=== PATIENT | male | born 1950 | race Caucasian/White ===

== ENCOUNTER 2023-10-10 22:52 | Inpatient (IN) | payer MEDICARE, OTHER ==
[~2023-10-10] VITALS: Ht 172.7 cm; Wt 64.9 kg
[2023-10-10 23:50] LABS: BASOPHILS % (AUTO) 0.6 % (0.0-2.0); EOSINOPHILS # (AUTO) 0.1 K/uL (0.0-0.7); EOSINOPHILS % (AUTO) 1.5 % (0.0-6.0); HEMATOCRIT 22 % (39-51); LYMPHOCYTES # (AUTO) 1.8 K/uL (0.8-4.8); LYMPHOCYTES % (AUTO) 23.1 % (20.0-44.0); MEAN CORPUSCULAR HEMOGLOBIN 40 PG (26.0-33.0); MEAN CORPUSCULAR HGB CONC 32 g/dl (31.0-36.0); MEAN CORPUSCULAR VOLUME 126 fL (80-96); MONOCYTES # (AUTO) 0.5 K/uL (0.1-1.30); MONOCYTES % (AUTO) 6.3 % (2.0-12.0); NEUTROPHILS # (AUTO) 5.4 K/uL (1.8-8.9); NEUTROPHILS % (AUTO) 68.5 % (43.0-81.0); PLATELET COUNT (AUTO) 234 K/uL (150-450); RED CELL DISTRIBUTION WIDTH 19.5 % (11.5-15.0); WHITE BLOOD COUNT (AUTO) 7.8 K/uL (4.3-11.0)
[2023-10-11] VITALS (8 sets, daily range): BP systolic 88–118; BP diastolic 49–65; TEMP 97.9–98.8; O2SAT 95–97
[2023-10-11] MEDS ORDERED: CEFTRIAXONE 1GM BAG (ER ONLY) 50 ML IV ONE (00:01)
[2023-10-11 00:02] LABS: RED BLOOD CELL COUNT(AUTO) 1.74 MIL/uL (4.5-6.0)
[2023-10-11] MEDS: CEFTRIAXONE 1 G in IV D5W 50 ML IV ONE (00:09)
[2023-10-11 00:23] LABS: ALANINE AMINOTRANSFERASE 26 U/L (12-78); ALKALINE PHOSPHATASE 163 U/L (46-116); ASPARTATE AMINOTRANSFERASE 59 U/L (15-37); BILIRUBIN,TOTAL 0.5 mg/dL (0.2-1.0); CALCIUM, SERUM 6.8 mg/dL (8.5-10.1); CARBON DIOXIDE 20 mmol/L (21-32); CHLORIDE 102 mmol/L (98-107); CREATININE 0.7 mg/dL (0.6-1.3); GLUCOSE 80 mg/dL (74-106); NT-PRO BNP 1416 pg/mL (0-125); POTASSIUM 4.7 mmol/L (3.5-5.1); SODIUM SERUM 133 mmol/L (136-145); TOTAL PROTEIN, SERUM 5.5 g/dL (6.4-8.2); UREA NITROGEN, BLOOD 13 mg/dL (7-18)
[2023-10-11 00:26] LABS: ALBUMIN 1.3 g/dL (3.4-5.0)
[2023-10-11 00:27] LABS: LACTIC ACID 5.5 mmol/L (0.4-2.0)
[2023-10-11] MEDS: IV NS 0.9% 1,000 ML IV ONE (00:49)
[2023-10-11] MEDS ORDERED: Z GUARD REMEDY 4 OZ OINT TP PRN (02:30)
[2023-10-11] MEDS ORDERED: MAGNESIUM HYDROXIDE 30 ML UDC PO PRN (02:30)
[2023-10-11] MEDS ORDERED: ZOLPIDEM TARTRATE 5 MG TABLET PO PRN (02:30)
[2023-10-11] MEDS ORDERED: MAG HYDROX/AL HYDROX/SIMETH 30 ML UDC PO PRN (02:30)
[2023-10-11] MEDS ORDERED: ONDANSETRON HCL/PF 4 MG/2 ML VIAL IVP PRN (02:30)
[2023-10-11 02:58] LABS: BILIRUBIN,DIRECT 0.2 mg/dL (0.0-0.2)
[2023-10-11] MEDS ORDERED: MORPHINE SULFATE INJ 4 MG/ML DISP.SYRIN IV PRN (03:00)
[2023-10-11 03:05] LABS: LACTIC ACID REFLEX 2.9 mmol/L (0.4-1.9)
[2023-10-11] MEDS: VANCOMYCIN 1 GM /D5W 250 ML PB IV ONE (04:06)
[2023-10-11] MEDS: VANCOMYCIN 1 GM in IV D5W 250 ML IV ONE (04:22)
[2023-10-11] MEDS: APIXABAN 5 MG TABLET PO SCH (04:28)
[2023-10-11 07:18] LABS: CALCIUM, SERUM 6.6 mg/dL (8.5-10.1); CREATININE 0.7 mg/dL (0.6-1.3); POTASSIUM 4.2 mmol/L (3.5-5.1)
[2023-10-11 07:30] LABS: BASOPHILS % (AUTO) 0.6 % (0.0-2.0); EOSINOPHILS # (AUTO) 0.1 K/uL (0.0-0.7); EOSINOPHILS % (AUTO) 1.2 % (0.0-6.0); LYMPHOCYTES # (AUTO) 1.5 K/uL (0.8-4.8); LYMPHOCYTES % (AUTO) 22.1 % (20.0-44.0); MEAN CORPUSCULAR HEMOGLOBIN 41 PG (26.0-33.0); MEAN CORPUSCULAR HGB CONC 32 g/dl (31.0-36.0); MEAN CORPUSCULAR VOLUME 127 fL (80-96); MONOCYTES # (AUTO) 0.6 K/uL (0.1-1.30); MONOCYTES % (AUTO) 8.7 % (2.0-12.0); NEUTROPHILS # (AUTO) 4.6 K/uL (1.8-8.9); NEUTROPHILS % (AUTO) 67.4 % (43.0-81.0); PLATELET COUNT (AUTO) 196 K/uL (150-450); WHITE BLOOD COUNT (AUTO) 6.9 K/uL (4.3-11.0)
[2023-10-11 07:58] LABS: HEMATOCRIT 20 % (39-51); RED BLOOD CELL COUNT(AUTO) 1.56 MIL/uL (4.5-6.0)
[2023-10-11 07:59] LABS: HEMOGLOBIN 6.3 g/dL (13.5-17.5)
[2023-10-11] MEDS: PANTOPRAZOLE 40 MG VIAL IV SCH (08:33)
[2023-10-11] MEDS ORDERED: GABA300C PO (08:55)
[2023-10-11] MEDS ORDERED: GUAI600T31 PO (08:55)
[2023-10-11] MEDS ORDERED: LEVA15HF6 IH (08:55)
[2023-10-11] MEDS ORDERED: METO-357 PO (08:55)
[2023-10-11 11:28] LABS: ANISOCYTOSIS 1+; BASOPHILS % (MANUAL) 0 % (0.0-2.0); EOSINOPHILS % (MANUAL) 2 % (0-4); LYMPHOCYTES % (MANUAL) 18 % (16-48); MONOCYTES % (MANUAL) 7 % (0-11.0); NEUTROPHILS % (MANUAL) 73 (42-76); OVALOCYTES 1+; PLATELET ESTIMATE ADEQUATE
[2023-10-11] MEDS: VANCOMYCIN HCL 1.25 GM in IV D5W 250 ML IV SCH (15:15)
[2023-10-11 19:41] LABS: HEMOGLOBIN 8.4 g/dL (13.5-17.5)
[2023-10-11] MEDS: ACETAMINOPHEN 325 MG TABLET PO PRN (20:51)
[2023-10-11] MEDS: CEFTRIAXONE 1 G in IV D5W 50 ML IV SCH (21:13)
[2023-10-12 07:06] LABS: BASOPHILS % (AUTO) 0.6 % (0.0-2.0); EOSINOPHILS # (AUTO) 0.1 K/uL (0.0-0.7); EOSINOPHILS % (AUTO) 1.8 % (0.0-6.0); HEMATOCRIT 26 % (39-51); HEMOGLOBIN 8.5 g/dL (13.5-17.5); LYMPHOCYTES # (AUTO) 1.4 K/uL (0.8-4.8); LYMPHOCYTES % (AUTO) 19.7 % (20.0-44.0); MEAN CORPUSCULAR HEMOGLOBIN 37 PG (26.0-33.0); MEAN CORPUSCULAR HGB CONC 33 g/dl (31.0-36.0); MEAN CORPUSCULAR VOLUME 110 fL (80-96); MONOCYTES # (AUTO) 0.4 K/uL (0.1-1.30); MONOCYTES % (AUTO) 5.6 % (2.0-12.0); NEUTROPHILS # (AUTO) 5.1 K/uL (1.8-8.9); NEUTROPHILS % (AUTO) 72.3 % (43.0-81.0); PLATELET COUNT (AUTO) 203 K/uL (150-450); RED BLOOD CELL COUNT(AUTO) 2.33 MIL/uL (4.5-6.0); RED CELL DISTRIBUTION WIDTH 30.6 % (11.5-15.0)
[2023-10-12 07:30] VITALS: BP 119/62; TEMP 98.4; O2SAT 98
[2023-10-12 08:34] LABS: CALCIUM, SERUM 7.1 mg/dL (8.5-10.1); CARBON DIOXIDE 24 mmol/L (21-32); CHLORIDE 104 mmol/L (98-107); GLUCOSE 102 mg/dL (74-106); MAGNESIUM 1.9 mg/dL (1.8-2.4); PHOSPHORUS 3.1 mg/dL (2.5-4.9); SODIUM SERUM 133 mmol/L (136-145); UREA NITROGEN, BLOOD 15 mg/dL (7-18)
[2023-10-12] MEDS: PANTOPRAZOLE 40 MG TABLET.DR PO SCH (09:50)
[2023-10-12] MEDS: HYDROCODONE/APAP 5/325MG TABLET PO PRN (13:38)
[2023-10-12 16:00] VITALS: BP 97/51; TEMP 99.1; O2SAT 96
[2023-10-12 18:02] LABS: HEMOGLOBIN 7.3 g/dL (13.5-17.5)
[2023-10-12 20:00] VITALS: BP 100/59; TEMP 99.1; O2SAT 96
[2023-10-13] MEDS: VANCOMYCIN 750 MG in IV D5W 250 ML IV SCH (04:04)
[2023-10-13 07:24] LABS: CARBON DIOXIDE 25 mmol/L (21-32); CHLORIDE 117 mmol/L (98-107); GLUCOSE 92 mg/dL (74-106); POTASSIUM 3.7 mmol/L (3.5-5.1); SODIUM SERUM 145 mmol/L (136-145); UREA NITROGEN, BLOOD 15 mg/dL (7-18)
[2023-10-13 08:00] VITALS: BP 99/56; TEMP 98.2; O2SAT 98
[2023-10-13] MEDS: DAKINS HALF STRENGTH (0.25%) 480 ML BOTTLE TOP SCH (09:00)
[2023-10-13] MEDS: METOPROLOL SUCCINATE 50 MG TAB.SR.24H PO SCH (11:00)
[2023-10-13] MEDS: PROSOURCE / PROSTAT (PYXIS) 30 ML UDC PO SCH (13:00)
[2023-10-13] MEDS: GABAPENTIN 300 MG CAPSULE PO SCH (13:40)
[2023-10-13 16:00] VITALS: BP 106/54; TEMP 97.9; O2SAT 98
[2023-10-13 16:01] VITALS: BP 106/54; TEMP 97.9; O2SAT 98
[2023-10-13 20:00] VITALS: BP 103/55; TEMP 97.3; O2SAT 100
[2023-10-13 23:12] VITALS: BP 103/55; TEMP 97.3; O2SAT 100
[2023-10-14] VITALS (11 sets, daily range): BP systolic 98–132; BP diastolic 52–87; TEMP 97.5–98.6; O2SAT 97–100
[2023-10-14] MEDS: VANCOMYCIN 750 MG in IV D5W 250 ML IV SCH (03:18)
[2023-10-14 06:56] LABS: CALCIUM, SERUM 7.1 mg/dL (8.5-10.1); CREATININE 1.2 mg/dL (0.6-1.3); POTASSIUM 4.2 mmol/L (3.5-5.1)
[2023-10-14 07:14] LABS: BASOPHILS # (AUTO) 0.1 K/uL (0.0-0.2); EOSINOPHILS # (AUTO) 0.1 K/uL (0.0-0.7); EOSINOPHILS % (AUTO) 1.4 % (0.0-6.0); LYMPHOCYTES # (AUTO) 1.9 K/uL (0.8-4.8); LYMPHOCYTES % (AUTO) 32.8 % (20.0-44.0); MEAN CORPUSCULAR HEMOGLOBIN 37 PG (26.0-33.0); MEAN CORPUSCULAR HGB CONC 33 g/dl (31.0-36.0); MEAN CORPUSCULAR VOLUME 112 fL (80-96); MONOCYTES # (AUTO) 0.6 K/uL (0.1-1.30); NEUTROPHILS # (AUTO) 3.2 K/uL (1.8-8.9); NEUTROPHILS % (AUTO) 54.8 % (43.0-81.0); PLATELET COUNT (AUTO) 197 K/uL (150-450); RED CELL DISTRIBUTION WIDTH 29.5 % (11.5-15.0); WHITE BLOOD COUNT (AUTO) 5.9 K/uL (4.3-11.0)
[2023-10-14 07:26] LABS: RED BLOOD CELL COUNT(AUTO) 1.55 MIL/uL (4.5-6.0)
[2023-10-14 07:43] LABS: HEMATOCRIT 17 % (39-51); HEMOGLOBIN 5.7 g/dL (13.5-17.5)
[2023-10-14 09:57] LABS: ANISOCYTOSIS 1+; BASOPHILS % (MANUAL) 0 % (0.0-2.0); EOSINOPHILS % (MANUAL) 2 % (0-4); LYMPHOCYTES % (MANUAL) 25 % (16-48); MONOCYTES % (MANUAL) 7 % (0-11.0); NEUTROPHILS % (MANUAL) 66 (42-76); OVALOCYTES 1+; PLATELET ESTIMATE ADEQUATE
[2023-10-14] MEDS: PANTOPRAZOLE 40 MG VIAL IV SCH (22:15)
[2023-10-15 00:25] LABS: HEMOGLOBIN 8.1 g/dL (13.5-17.5)
[2023-10-15 00:56] LABS: CREATININE, URINE 82.4 MG/DL (30.0-125.0); URINE SODIUM, RANDOM < 5 mmol/l (40-220); URINE TOTAL PROTEIN 21.4 mg/dL (0-11.9)
[2023-10-15 01:01] LABS: APPEARANCE,URINE CLEAR (CLEAR); BILIRUBIN,URINE NEGATIVE (NEGATIVE); BLOOD, URINE 1+ Ery/uL (NEGATIVE); COLOR,URINE YELLOW (YELLOW); KETONES,URINE TRACE mg/dL (NEGATIVE); LEUKOCYTE ESTERASE ,URINE NEGATIVE (NEGATIVE); NITRITE, URINE NEGATIVE (NEGATIVE); PH,URINE 5.5 (5.0-8.0); PROTEIN,URINE NEGATIVE (NEGATIVE); UGLUCOSE NEGATIVE (NEGATIVE); UROBILINOGEN,URINE 0.2 EU/dL (0.2)
[2023-10-15 01:03] LABS: ADD URINE CULTURE NO; BACTERIA,URINE Rare /HPF (None Seen); EOSINOPHIL,URINE None Seen; SQUAMOUS EPITHELIAL CELL,UR Few /HPF (None Seen); WBC,URINE 0-2 /HPF (0-3)
[2023-10-15 03:04] VITALS: O2SAT 100
[2023-10-15 04:45] LABS: BASOPHILS # (AUTO) 0.1 K/uL (0.0-0.2); BASOPHILS % (AUTO) 1.1 % (0.0-2.0); EOSINOPHILS # (AUTO) 0.1 K/uL (0.0-0.7); EOSINOPHILS % (AUTO) 1.9 % (0.0-6.0); HEMATOCRIT 25 % (39-51); HEMOGLOBIN 8.6 g/dL (13.5-17.5); LYMPHOCYTES # (AUTO) 1.3 K/uL (0.8-4.8); LYMPHOCYTES % (AUTO) 19.1 % (20.0-44.0); MEAN CORPUSCULAR HEMOGLOBIN 36 PG (26.0-33.0); MEAN CORPUSCULAR HGB CONC 35 g/dl (31.0-36.0); MEAN CORPUSCULAR VOLUME 103 fL (80-96); MONOCYTES # (AUTO) 0.5 K/uL (0.1-1.30); MONOCYTES % (AUTO) 7.8 % (2.0-12.0); NEUTROPHILS # (AUTO) 4.6 K/uL (1.8-8.9); NEUTROPHILS % (AUTO) 70.1 % (43.0-81.0); PLATELET COUNT (AUTO) 183 K/uL (150-450); RED BLOOD CELL COUNT(AUTO) 2.42 MIL/uL (4.5-6.0); RED CELL DISTRIBUTION WIDTH 26.5 % (11.5-15.0); WHITE BLOOD COUNT (AUTO) 6.6 K/uL (4.3-11.0)
[2023-10-15 05:05] LABS: ALBUMIN 1.2 g/dL (3.4-5.0); CALCIUM, SERUM 7.4 mg/dL (8.5-10.1); CREATININE 1.1 mg/dL (0.6-1.3); PHOSPHORUS 3.3 mg/dL (2.5-4.9); POTASSIUM 3.5 mmol/L (3.5-5.1)
[2023-10-15 07:53] LABS: OCCULT BLOOD STOOL POSITIVE (NEGATIVE)
[2023-10-15 08:00] VITALS: BP 121/68; TEMP 98.2; O2SAT 100
[2023-10-15 16:00] VITALS: BP 108/59; TEMP 97.5; O2SAT 100
[2023-10-15 20:25] VITALS: BP 121/65; TEMP 97.5; O2SAT 100
[2023-10-16 04:27] LABS: BASOPHILS % (AUTO) 0.5 % (0.0-2.0); EOSINOPHILS # (AUTO) 0.2 K/uL (0.0-0.7); EOSINOPHILS % (AUTO) 5.8 % (0.0-6.0); HEMATOCRIT 24 % (39-51); HEMOGLOBIN 8.1 g/dL (13.5-17.5); LYMPHOCYTES # (AUTO) 0.9 K/uL (0.8-4.8); LYMPHOCYTES % (AUTO) 23.7 % (20.0-44.0); MEAN CORPUSCULAR HEMOGLOBIN 35 PG (26.0-33.0); MEAN CORPUSCULAR HGB CONC 33 g/dl (31.0-36.0); MEAN CORPUSCULAR VOLUME 103 fL (80-96); MONOCYTES # (AUTO) 0.2 K/uL (0.1-1.30); MONOCYTES % (AUTO) 5.3 % (2.0-12.0); NEUTROPHILS # (AUTO) 2.4 K/uL (1.8-8.9); NEUTROPHILS % (AUTO) 64.7 % (43.0-81.0); PLATELET COUNT (AUTO) 174 K/uL (150-450); RED BLOOD CELL COUNT(AUTO) 2.36 MIL/uL (4.5-6.0); RED CELL DISTRIBUTION WIDTH 27.2 % (11.5-15.0); WHITE BLOOD COUNT (AUTO) 3.8 K/uL (4.3-11.0)
[2023-10-16 05:20] LABS: CALCIUM, SERUM 7.5 mg/dL (8.5-10.1); CREATININE 1.1 mg/dL (0.6-1.3); POTASSIUM 3.5 mmol/L (3.5-5.1)
[2023-10-16 05:24] VITALS: O2SAT 100
[2023-10-16] MEDS: VANCOMYCIN 750 MG in IV D5W 250 ML IV SCH (05:34)
[2023-10-16 06:10] LABS: PTH, INTACT 17 pg/mL (15-65)
[2023-10-16 07:30] VITALS: BP 116/63; TEMP 97.3; O2SAT 97
[2023-10-16 08:28] VITALS: O2SAT 99
[2023-10-16 12:11] LABS: *SPE A/G RATIO 0.5 (0.7-1.7); *SPE ALBUMIN 1.6 g/dL (2.9-4.4); *SPE ALPHA-1-GLOBULIN 0.3 g/dL (0.0-0.4); *SPE ALPHA-2-GLOBULIN 0.4 g/dL (0.4-1.0); *SPE BETA GLOBULIN 0.8 g/dL (0.7-1.3); *SPE GLOBULIN, TOTAL 3.2 g/dL (2.2-3.9); *SPE M-SPIKE 0.9 g/dL (Not Observed); *SPE PROTEIN TOTAL 4.8 g/dL (6.0-8.5); *SPEGAMMA GLOBULIN 1.7 g/dL (0.4-1.8)
[2023-10-16 16:00] VITALS: BP 114/58; TEMP 97.3; O2SAT 98
[2023-10-16] MEDS: MEROPENEM 1 G in IV NS 0.9% 100 ML IV SCH (16:24)
[2023-10-16 20:00] VITALS: BP 105/52; TEMP 97.9; O2SAT 100
[2023-10-16] MEDS: PANTOPRAZOLE 40 MG TABLET.DR PO SCH (20:55)
[2023-10-17 02:31] VITALS: O2SAT 99
[2023-10-17 07:25] LABS: HEMOGLOBIN 12.2 g/dL (13.5-17.5)
[2023-10-17 07:47] LABS: BASOPHILS % (AUTO) 1.1 % (0.0-2.0); EOSINOPHILS # (AUTO) 0.5 K/uL (0.0-0.7); EOSINOPHILS % (AUTO) 11.3 % (0.0-6.0); HEMATOCRIT 36 % (39-51); LYMPHOCYTES # (AUTO) 1.9 K/uL (0.8-4.8); LYMPHOCYTES % (AUTO) 43.8 % (20.0-44.0); MEAN CORPUSCULAR HEMOGLOBIN 30 PG (26.0-33.0); MEAN CORPUSCULAR HGB CONC 34 g/dl (31.0-36.0); MEAN CORPUSCULAR VOLUME 88 fL (80-96); MONOCYTES # (AUTO) 0.4 K/uL (0.1-1.30); MONOCYTES % (AUTO) 8.6 % (2.0-12.0); NEUTROPHILS # (AUTO) 1.6 K/uL (1.8-8.9); NEUTROPHILS % (AUTO) 35.2 % (43.0-81.0); PLATELET COUNT (AUTO) 228 K/uL (150-450); RED BLOOD CELL COUNT(AUTO) 4.08 MIL/uL (4.5-6.0); RED CELL DISTRIBUTION WIDTH 13.6 % (11.5-15.0); WHITE BLOOD COUNT (AUTO) 4.4 K/uL (4.3-11.0)
[2023-10-17 08:00] VITALS: BP 103/59; TEMP 98; O2SAT 98
[2023-10-17 08:09] VITALS: O2SAT 98
[2023-10-17] MEDS: GUAIFENESIN/D-METHORPHAN HB 5 ML UDC PO PRN (16:26)
[2023-10-17 20:00] VITALS: BP 118/69; TEMP 97.5; O2SAT 98
[2023-10-18 04:02] VITALS: O2SAT 98
[2023-10-18 08:00] VITALS: BP 127/69; TEMP 97.7; O2SAT 97
[2023-10-18 09:24] VITALS: O2SAT 98
[2023-10-18 10:15] LABS: CREATININE 0.9 mg/dL (0.6-1.3); POTASSIUM 2.9 mmol/L (3.5-5.1)
[2023-10-18] MEDS: POTASSIUM CHLORIDE 20 MEQ TAB.PRT.SR PO SCH (11:29)
[2023-10-18 16:00] VITALS: BP 116/65; TEMP 97.9; O2SAT 93
[2023-10-18 21:51] VITALS: BP 116/59; TEMP 97.7; O2SAT 96
[2023-10-19 04:26] VITALS: O2SAT 95
[2023-10-19 06:31] LABS: BASOPHILS % (AUTO) 0.6 % (0.0-2.0); EOSINOPHILS # (AUTO) 0.1 K/uL (0.0-0.7); EOSINOPHILS % (AUTO) 1.7 % (0.0-6.0); HEMATOCRIT 22 % (39-51); HEMOGLOBIN 7.3 g/dL (13.5-17.5); LYMPHOCYTES # (AUTO) 1.1 K/uL (0.8-4.8); LYMPHOCYTES % (AUTO) 18.5 % (20.0-44.0); MEAN CORPUSCULAR HEMOGLOBIN 35 PG (26.0-33.0); MEAN CORPUSCULAR HGB CONC 33 g/dl (31.0-36.0); MEAN CORPUSCULAR VOLUME 107 fL (80-96); MONOCYTES # (AUTO) 0.5 K/uL (0.1-1.30); NEUTROPHILS # (AUTO) 4.4 K/uL (1.8-8.9); NEUTROPHILS % (AUTO) 71.2 % (43.0-81.0); PLATELET COUNT (AUTO) 176 K/uL (150-450); RED BLOOD CELL COUNT(AUTO) 2.07 MIL/uL (4.5-6.0); RED CELL DISTRIBUTION WIDTH 27.4 % (11.5-15.0); WHITE BLOOD COUNT (AUTO) 6.1 K/uL (4.3-11.0)
[2023-10-19 07:00] VITALS: BP 143/73; TEMP 97.7; O2SAT 100
[2023-10-19 07:14] LABS: CALCIUM, SERUM 7.3 mg/dL (8.5-10.1); CARBON DIOXIDE 23 mmol/L (21-32); CHLORIDE 111 mmol/L (98-107); CREATININE 0.9 mg/dL (0.6-1.3); GLUCOSE 96 mg/dL (74-106); SODIUM SERUM 139 mmol/L (136-145); UREA NITROGEN, BLOOD 26 mg/dL (7-18)
[2023-10-19 08:16] VITALS: O2SAT 98
[2023-10-19 09:32] VITALS: BP 123/60
[2023-10-19] MEDS: MEROPENEM 1 G in IV NS 0.9% 100 ML IV SCH (12:22)
== END 2023-10-19 15:30 | DRG 570 ==
LOC: ER 22:57 → MED 10-11 01:54
PROVIDERS: ATTEND Nurse Practitioner Acute Care
PROC: 30233N1 Transfusion of Nonautologous Red Blood Cells into Peripheral Vein, Percutaneous Approach (ICD-10-PCS; 2023-10-11)
PROC: 0KBV0ZZ Excision of Right Foot Muscle, Open Approach (ICD-10-PCS; principal; 2023-10-12)
PROC: 0JBN0ZZ Excision of Right Lower Leg Subcutaneous Tissue and Fascia, Open Approach (ICD-10-PCS; 2023-10-12)
PROC: 0JBR0ZZ Excision of Left Foot Subcutaneous Tissue and Fascia, Open Approach (ICD-10-PCS; 2023-10-12)
PROC: 0JBP0ZZ Excision of Left Lower Leg Subcutaneous Tissue and Fascia, Open Approach (ICD-10-PCS; 2023-10-12)
DX: L03.116 Cellulitis of left lower limb (principal); L89.614 Pressure ulcer of right heel, stage 4; L89.624 Pressure ulcer of left heel, stage 4; L89.893 Pressure ulcer of other site, stage 3; E87.1 Hypo-osmolality and hyponatremia; N17.9 Acute kidney failure, unspecified; E44.0 Moderate protein-calorie malnutrition; K92.2 Gastrointestinal hemorrhage, unspecified; G62.9 Polyneuropathy, unspecified; G89.29 Other chronic pain; D53.9 Nutritional anemia, unspecified; I10 Essential (primary) hypertension; D63.8 Anemia in other chronic diseases classified elsewhere; E88.09 Other disorders of plasma-protein metabolism, not elsewhere classified; L03.115 Cellulitis of right lower limb; Z74.01 Bed confinement status; Z86.718 Personal history of other venous thrombosis and embolism; E83.9 Disorder of mineral metabolism, unspecified; Z68.21 Body mass index [BMI] 21.0-21.9, adult; B96.89 Other specified bacterial agents as the cause of diseases classified elsewhere; L89.156 Pressure-induced deep tissue damage of sacral region; R19.5 Other fecal abnormalities
CPT/HCPCS: 36415; 71045-TC; 73590-TC; 73630-TC; 80048-TC; 80053-TC; 80202-TC; 81001; 82248-TC; 82272-TC; 82550-TC; 82570-TC; 83540-TC; 83605-TC; 83735-TC; 83880; 83970; 84100-TC; 84155; 84165; 84300-TC; 84484-TC; 85025-TC; 85027-TC; 86850-TC; 87040-TC; 93971-TC; 94760-TC; 94799-TC; 97110-TC; 97116-TC; 97530-TC; A4223; A4349; A6253; A6403; C9113; G0378; J0696; J2185; J3370; J3371; J7030; J7040; J7050; J7060; P9016

== ENCOUNTER 2024-08-29 22:24 | Inpatient (IN) | payer MEDICARE, OTHER ==
[~2024-08-29] VITALS: Ht 172.7 cm; Wt 60.8 kg
[~2024-08-29 22:24] MED LIST: GABA300C PO; GUAI600T31 PO; LEVA15HF6 IH; METO-357 PO
[2024-08-29] MEDS: ALBUTEROL FS 2.5 MG/3 ML VIAL.NEB NEB ONE (22:59)
[2024-08-29] MEDS: IPRATROPIUM NEB FS 0.5 MG/2.5 ML AMPUL.NEB NEB ONE (22:59)
[2024-08-29 23:01] VITALS: O2SAT 97
[2024-08-29] MEDS: methylPREDNISolone SOD SUCC 125 MG/2ML VIAL IV ONE (23:02)
[2024-08-29] MEDS: AZITHROMYCIN 250 MG TABLET PO ONE (23:02)
[2024-08-29 23:17] VITALS: O2SAT 96
[2024-08-29 23:17] LABS: BASOPHILS # (AUTO) 0.1 K/uL (0.0-0.2); BASOPHILS % (AUTO) 1.2 % (0.0-2.0); EOSINOPHILS # (AUTO) 0.4 K/uL (0.0-0.7); HEMATOCRIT 28 % (39-51); HEMOGLOBIN 9.1 g/dL (13.5-17.5); LYMPHOCYTES # (AUTO) 2.1 K/uL (0.8-4.8); LYMPHOCYTES % (AUTO) 21.7 % (20.0-44.0); MEAN CORPUSCULAR HEMOGLOBIN 36 PG (26.0-33.0); MEAN CORPUSCULAR HGB CONC 33 g/dl (31.0-36.0); MEAN CORPUSCULAR VOLUME 109 fL (80-96); MONOCYTES # (AUTO) 0.7 K/uL (0.1-1.30); MONOCYTES % (AUTO) 7.4 % (2.0-12.0); NEUTROPHILS # (AUTO) 6.5 K/uL (1.8-8.9); NEUTROPHILS % (AUTO) 65.7 % (43.0-81.0); PLATELET COUNT (AUTO) 427 K/uL (150-450); RED BLOOD CELL COUNT(AUTO) 2.53 MIL/uL (4.5-6.0); RED CELL DISTRIBUTION WIDTH 14.7 % (11.5-15.0); WHITE BLOOD COUNT (AUTO) 9.9 K/uL (4.3-11.0)
[2024-08-29 23:25] LABS: CARBON DIOXIDE 30 mmol/L (21-32); CHLORIDE 111 mmol/L (98-107); GLUCOSE 119 mg/dL (74-106); POTASSIUM 3.9 mmol/L (3.5-5.1); SODIUM SERUM 144 mmol/L (136-145); UREA NITROGEN, BLOOD 11 mg/dL (7-18)
[2024-08-29 23:30] VITALS: O2SAT 96
[2024-08-29] MEDS ORDERED: IOHEXOL-350 100 ML VIAL IV ONE (23:32)
[2024-08-29 23:33] LABS: LACTIC ACID 1.6 mmol/L (0.4-2.0)
[2024-08-29 23:40] LABS: ALANINE AMINOTRANSFERASE 9 U/L (12-78); ALBUMIN 1.6 g/dL (3.4-5.0); ALKALINE PHOSPHATASE 95 U/L (46-116); ASPARTATE AMINOTRANSFERASE 25 U/L (15-37); BILIRUBIN,DIRECT 0.1 mg/dL (0.0-0.2); BILIRUBIN,TOTAL 0.3 mg/dL (0.2-1.0)
[2024-08-30] MEDS ORDERED: FUROSEMIDE 40 MG/4 ML VIAL ONE (00:32)
[2024-08-30] MEDS: FUROSEMIDE 40 MG/4 ML VIAL IV ONE (00:35)
[2024-08-30] MEDS ORDERED: ACETAMINOPHEN 325 MG TABLET PO PRN (01:30)
[2024-08-30] MEDS ORDERED: ONDANSETRON HCL/PF 4 MG/2 ML VIAL IVP PRN (01:30)
[2024-08-30] MEDS ORDERED: MAGNESIUM HYDROXIDE 30 ML UDC PO PRN (01:30)
[2024-08-30] MEDS ORDERED: MAG HYDROX/AL HYDROX/SIMETH 30 ML UDC PO PRN (01:30)
[2024-08-30] MEDS ORDERED: PIPERACI/TAZO 3.375GM/D5W 50ML PB IV ONE (02:35)
[2024-08-30] MEDS: PIPERACILLIN /TAZOBACTAM 3.375 G in IV D5W 50 ML IV ONE (02:39)
[2024-08-30 04:00] VITALS: BP 141/91; TEMP 98.2; O2SAT 100
[2024-08-30] MEDS: methylPREDNISolone SOD SUCC 40 MG/ML VIAL IV SCH (04:16)
[2024-08-30] MEDS ORDERED: VANCOMYCIN 1 GM /D5W 250 ML PB IV ONE (04:17)
[2024-08-30] MEDS: VANCOMYCIN 1 GM in IV D5W 250 ML IV ONE (04:18)
[2024-08-30 07:34] LABS: CALCIUM, SERUM 7.9 mg/dL (8.5-10.1); CREATININE 0.9 mg/dL (0.6-1.3); MAGNESIUM 1.7 mg/dL (1.8-2.4); PHOSPHORUS 4.1 mg/dL (2.5-4.9); POTASSIUM 3.6 mmol/L (3.5-5.1)
[2024-08-30 07:36] LABS: BASOPHILS % (AUTO) 0.3 % (0.0-2.0); HEMATOCRIT 29 % (39-51); HEMOGLOBIN 9.5 g/dL (13.5-17.5); LYMPHOCYTES # (AUTO) 0.4 K/uL (0.8-4.8); LYMPHOCYTES % (AUTO) 2.8 % (20.0-44.0); MEAN CORPUSCULAR HEMOGLOBIN 36 PG (26.0-33.0); MEAN CORPUSCULAR HGB CONC 33 g/dl (31.0-36.0); MEAN CORPUSCULAR VOLUME 109 fL (80-96); MONOCYTES # (AUTO) 0.1 K/uL (0.1-1.30); MONOCYTES % (AUTO) 0.8 % (2.0-12.0); NEUTROPHILS # (AUTO) 12.6 K/uL (1.8-8.9); NEUTROPHILS % (AUTO) 96.1 % (43.0-81.0); PLATELET COUNT (AUTO) 371 K/uL (150-450); RED BLOOD CELL COUNT(AUTO) 2.65 MIL/uL (4.5-6.0); RED CELL DISTRIBUTION WIDTH 14.4 % (11.5-15.0); WHITE BLOOD COUNT (AUTO) 13.1 K/uL (4.3-11.0)
[2024-08-30 08:00] VITALS: BP 138/83; TEMP 97.5; O2SAT 96
[2024-08-30] MEDS: PANTOPRAZOLE 40 MG VIAL IV SCH (08:07)
[2024-08-30] MEDS: FUROSEMIDE 40 MG/4 ML VIAL IV SCH (08:07)
[2024-08-30] MEDS: POTASSIUM CHLORIDE 20 MEQ TAB.PRT.SR PO SCH (08:07)
[2024-08-30 08:22] LABS: ANISOCYTOSIS 2+; PLATELET ESTIMATE ADEQUATE
[2024-08-30 08:23] LABS: STOMATOCYTES 1+; TARGET CELLS 1+
[2024-08-30] MEDS ORDERED: FUROSEMIDE 40 MG/4 ML VIAL IV SCH (09:00)
[2024-08-30] MEDS: ENOXAPARIN SODIUM 60 MG/0.6 ML DISP.SYRIN SQ SCH (09:00)
[2024-08-30] MEDS ORDERED: ENOXAPARIN SODIUM 40 MG/0.4 ML DISP.SYRIN SQ SCH (09:00)
[2024-08-30] MEDS: ZOSYN IVPB 3.375 G in IV D5W 50ml IV SCH (09:30)
[2024-08-30] MEDS ORDERED: GUAI100S69 PO (09:40)
[2024-08-30] MEDS ORDERED: DOCU100T2 PO (09:40)
[2024-08-30] MEDS ORDERED: FERR-68 PO (09:40)
[2024-08-30] MEDS ORDERED: PANT40TA2 PO (09:40)
[2024-08-30] MEDS ORDERED: AMIN30LI66 PO (09:40)
[2024-08-30] MEDS ORDERED: IPRA3AMP22 IH (09:40)
[2024-08-30] MEDS ORDERED: NA P133E RC (09:40)
[2024-08-30] MEDS ORDERED: APIX5TAB PO (09:40)
[2024-08-30] MEDS ORDERED: MAGN400O6 PO (09:40)
[2024-08-30] MEDS ORDERED: LACT1CAP61 PO (09:40)
[2024-08-30] MEDS ORDERED: HYDR-4303 PO (09:40)
[2024-08-30] MEDS ORDERED: BISA10SU11 RC (09:40)
[2024-08-30] MEDS ORDERED: CHOL100062 PO (09:40)
[2024-08-30] MEDS ORDERED: ACET-868 PO ×2 (09:40)
[2024-08-30] MEDS ORDERED: CRAN425C6 PO (09:40)
[2024-08-30] MEDS ORDERED: METO50TA7 PO (09:40)
[2024-08-30] MEDS: MAGNESIUM OXIDE 400 MG TABLET PO ONE (10:20)
[2024-08-30 10:47] LABS: IRON, SERUM 14 ug/dl (50-175); TOTAL IRON BINDING CAPACITY 129 ug/dl (250-450)
[2024-08-30 11:04] LABS: FERRITIN 364 ng/mL (8-388)
[2024-08-30 12:00] VITALS: BP 136/73; TEMP 97.8; O2SAT 99
[2024-08-30] MEDS ORDERED: PIPERACILLIN /TAZOBACTAM 3.375 G in IV D5W 50 ML IV SCH (13:00)
[2024-08-30] MEDS ORDERED: BISACODYL SUPP (10 MG) 10 MG/SUPP.RECT SUPP.RECT RC PRN (13:30)
[2024-08-30 16:00] VITALS: BP 143/66; TEMP 98; O2SAT 99
[2024-08-30] MEDS: VANCOMYCIN 750 MG in IV D5W 250 ML IV SCH (16:21)
[2024-08-30] MEDS: LACTOBACILLUS RHAMNOSUS GG 1 EACH CAP.SPRINK PO SCH (16:30)
[2024-08-30] MEDS: PANTOPRAZOLE 40 MG TABLET.DR PO SCH (16:30)
[2024-08-30] MEDS: FERROUS SULFATE (325 MG) 325 MG/TAB TABLET PO SCH (16:30)
[2024-08-30] MEDS: GABAPENTIN 300 MG CAPSULE PO SCH (16:31)
[2024-08-30 20:00] VITALS: BP 121/74; TEMP 98.1; O2SAT 99
[2024-08-31] VITALS: BP 120/70; TEMP 99; O2SAT 98
[2024-08-31 04:00] VITALS: BP 126/63; TEMP 98.8; O2SAT 98
[2024-08-31 06:44] LABS: BASOPHILS % (AUTO) 0.1 % (0.0-2.0); HEMATOCRIT 24 % (39-51); HEMOGLOBIN 8.3 g/dL (13.5-17.5); LYMPHOCYTES # (AUTO) 0.8 K/uL (0.8-4.8); LYMPHOCYTES % (AUTO) 8.9 % (20.0-44.0); MEAN CORPUSCULAR HEMOGLOBIN 37 PG (26.0-33.0); MEAN CORPUSCULAR HGB CONC 35 g/dl (31.0-36.0); MEAN CORPUSCULAR VOLUME 107 fL (80-96); MONOCYTES # (AUTO) 0.2 K/uL (0.1-1.30); MONOCYTES % (AUTO) 2.5 % (2.0-12.0); NEUTROPHILS # (AUTO) 8.1 K/uL (1.8-8.9); NEUTROPHILS % (AUTO) 88.5 % (43.0-81.0); PLATELET COUNT (AUTO) 316 K/uL (150-450); RED BLOOD CELL COUNT(AUTO) 2.24 MIL/uL (4.5-6.0); RED CELL DISTRIBUTION WIDTH 14.2 % (11.5-15.0); WHITE BLOOD COUNT (AUTO) 9.2 K/uL (4.3-11.0)
[2024-08-31 06:55] LABS: INR 1.16 (0.91-1.10); PROTHROMBIN TIME 12.2 SECS (9.2-11.1)
[2024-08-31 07:22] LABS: ALBUMIN 1.5 g/dL (3.4-5.0); BILIRUBIN,TOTAL 0.3 mg/dL (0.2-1.0); CALCIUM, SERUM 7.6 mg/dL (8.5-10.1); MAGNESIUM 1.6 mg/dL (1.8-2.4); PHOSPHORUS 3.2 mg/dL (2.5-4.9); POTASSIUM 3.7 mmol/L (3.5-5.1); TOTAL PROTEIN, SERUM 5.4 g/dL (6.4-8.2)
[2024-08-31 08:00] VITALS: BP 143/82; TEMP 98.1; O2SAT 100
[2024-08-31] MEDS: CHOLECALCIFEROL 1,000 UNIT TABLET (VIT D3) PO SCH (08:38)
[2024-08-31] MEDS: METOPROLOL SUCCINATE 50 MG TAB.SR.24H PO SCH (08:38)
[2024-08-31] MEDS: DOCUSATE SODIUM 100 MG CAPSULE PO SCH (08:38)
[2024-08-31] MEDS: Magnesium 1GM/D5W 100ML PREMIX 100 ML IV SCH (11:34)
[2024-08-31 12:00] VITALS: BP 146/82; TEMP 98.1; O2SAT 100
[2024-08-31 16:00] VITALS: BP 145/82; TEMP 98; O2SAT 100
[2024-08-31 20:00] VITALS: BP 140/80; TEMP 97.4; O2SAT 100
[2024-09-01] VITALS (7 sets, daily range): BP systolic 118–156; BP diastolic 63–92; TEMP 97.5–98; O2SAT 94–100
[2024-09-01 07:02] LABS: HEMATOCRIT 23 % (39-51); HEMOGLOBIN 7.8 g/dL (13.5-17.5); LYMPHOCYTES # (AUTO) 0.6 K/uL (0.8-4.8); LYMPHOCYTES % (AUTO) 6.8 % (20.0-44.0); MEAN CORPUSCULAR HEMOGLOBIN 37 PG (26.0-33.0); MEAN CORPUSCULAR HGB CONC 34 g/dl (31.0-36.0); MEAN CORPUSCULAR VOLUME 107 fL (80-96); MONOCYTES # (AUTO) 0.4 K/uL (0.1-1.30); MONOCYTES % (AUTO) 3.8 % (2.0-12.0); NEUTROPHILS # (AUTO) 8.4 K/uL (1.8-8.9); NEUTROPHILS % (AUTO) 89.4 % (43.0-81.0); PLATELET COUNT (AUTO) 303 K/uL (150-450); RED BLOOD CELL COUNT(AUTO) 2.12 MIL/uL (4.5-6.0); RED CELL DISTRIBUTION WIDTH 14.1 % (11.5-15.0); WHITE BLOOD COUNT (AUTO) 9.4 K/uL (4.3-11.0)
[2024-09-01 07:05] LABS: CALCIUM, SERUM 7.5 mg/dL (8.5-10.1); CREATININE 0.7 mg/dL (0.6-1.3); MAGNESIUM 2.1 mg/dL (1.8-2.4); PHOSPHORUS 1.9 mg/dL (2.5-4.9); POTASSIUM 3.1 mmol/L (3.5-5.1)
[2024-09-01] MEDS: POTASSIUM CHLORIDE 20 MEQ TAB.PRT.SR PO SCH (09:52)
[2024-09-01] MEDS: methylPREDNISolone SOD SUCC 40 MG/ML VIAL IV SCH (16:00)
[2024-09-01] MEDS: K PHOS NEUTRAL 250 MG TABLET PO ONE (16:12)
[2024-09-02] VITALS (10 sets, daily range): BP systolic 117–147; BP diastolic 55–80; TEMP 97.7–98.4; O2SAT 96–100
[2024-09-02] MEDS: IPRATROPIUM NEB FS 0.5 MG/2.5 ML AMPUL.NEB NEB PRN (06:21)
[2024-09-02] MEDS: LEVALBUTEROL HCL NEB 1.25 MG/0.5 ML VIAL.NEB NEB PRN (06:21)
[2024-09-02 08:07] LABS: HEMATOCRIT 27 % (39-51); LYMPHOCYTES # (AUTO) 1.1 K/uL (0.8-4.8); LYMPHOCYTES % (AUTO) 11.4 % (20.0-44.0); MEAN CORPUSCULAR HEMOGLOBIN 36 PG (26.0-33.0); MEAN CORPUSCULAR HGB CONC 34 g/dl (31.0-36.0); MEAN CORPUSCULAR VOLUME 107 fL (80-96); MONOCYTES # (AUTO) 0.7 K/uL (0.1-1.30); MONOCYTES % (AUTO) 7.4 % (2.0-12.0); NEUTROPHILS # (AUTO) 7.6 K/uL (1.8-8.9); NEUTROPHILS % (AUTO) 81.2 % (43.0-81.0); PLATELET COUNT (AUTO) 349 K/uL (150-450); RED BLOOD CELL COUNT(AUTO) 2.51 MIL/uL (4.5-6.0); RED CELL DISTRIBUTION WIDTH 14.1 % (11.5-15.0); WHITE BLOOD COUNT (AUTO) 9.3 K/uL (4.3-11.0)
[2024-09-02 08:27] LABS: CALCIUM, SERUM 7.9 mg/dL (8.5-10.1); CREATININE 0.7 mg/dL (0.6-1.3); PHOSPHORUS 2.1 mg/dL (2.5-4.9); POTASSIUM 3.7 mmol/L (3.5-5.1)
[2024-09-02] MEDS: K PHOS NEUTRAL 250 MG TABLET PO ONE (16:58)
[2024-09-02] MEDS: APIXABAN 5 MG TABLET PO SCH (17:00)
[2024-09-03] VITALS (10 sets, daily range): BP systolic 117–151; BP diastolic 51–90; TEMP 97.7–99; O2SAT 94–100
[2024-09-03 06:49] LABS: CALCIUM, SERUM 7.5 mg/dL (8.5-10.1); CREATININE 0.7 mg/dL (0.6-1.3); PHOSPHORUS 2.5 mg/dL (2.5-4.9)
[2024-09-03] MEDS: POTASSIUM CHLORIDE 20 MEQ TAB.PRT.SR PO SCH (11:28)
[2024-09-03] MEDS: VANCOMYCIN 500 MG in IV D5W 100ml IV SCH (22:32)
[2024-09-04] VITALS (7 sets, daily range): BP systolic 126–172; BP diastolic 65–92; TEMP 97.2–98.2; O2SAT 97–100
[2024-09-04 07:12] LABS: CALCIUM, SERUM 7.8 mg/dL (8.5-10.1); CARBON DIOXIDE 34 mmol/L (21-32); CHLORIDE 109 mmol/L (98-107); CREATININE 0.6 mg/dL (0.6-1.3); GLUCOSE 89 mg/dL (74-106); POTASSIUM 3.8 mmol/L (3.5-5.1); SODIUM SERUM 143 mmol/L (136-145); UREA NITROGEN, BLOOD 11 mg/dL (7-18)
[2024-09-04] MEDS: ZOSYN IVPB 3.375 G in IV D5W 50ml IV SCH (13:16)
[2024-09-05] VITALS (13 sets, daily range): BP systolic 146–178; BP diastolic 79–90; TEMP 98.1–98.4; O2SAT 93–100
[2024-09-05 06:58] LABS: CALCIUM, SERUM 7.7 mg/dL (8.5-10.1); CREATININE 0.7 mg/dL (0.6-1.3); POTASSIUM 3.9 mmol/L (3.5-5.1)
[2024-09-05] MEDS: IPRATROPIUM NEB FS 0.5 MG/2.5 ML AMPUL.NEB NEB SCH (10:00)
[2024-09-05] MEDS: ACETYLCYSTEINE 10% SOLN 400 MG/4 ML VIAL NEB SCH (10:00)
[2024-09-05] MEDS ORDERED: BUMETANIDE INJ 4 MG in IV D5W 24 ML IV ONE (10:00)
[2024-09-05] MEDS: LEVALBUTEROL HCL NEB 1.25 MG/0.5 ML VIAL.NEB NEB SCH (10:00)
[2024-09-05] MEDS: BUMETANIDE INJ 4 MG in IV NS 0.9% 24 ML IV ONE (10:50)
[2024-09-05] MEDS: VALSARTAN 80 MG TABLET PO SCH (11:00)
[2024-09-05 13:11] LABS: *SPE A/G RATIO 0.7 (0.7-1.7); *SPE ALBUMIN 2.1 g/dL (2.9-4.4); *SPE ALPHA-1-GLOBULIN 0.3 g/dL (0.0-0.4); *SPE ALPHA-2-GLOBULIN 0.5 g/dL (0.4-1.0); *SPE BETA GLOBULIN 0.7 g/dL (0.7-1.3); *SPE GLOBULIN, TOTAL 3.2 g/dL (2.2-3.9); *SPE PROTEIN TOTAL 5.3 g/dL (6.0-8.5); *SPEGAMMA GLOBULIN 1.8 g/dL (0.4-1.8)
[2024-09-05] MEDS: ALBUMIN 25% 25 GM in PREMIX 1 EA IV SCH (13:49)
[2024-09-06] VITALS (11 sets, daily range): BP systolic 140–155; BP diastolic 78–89; TEMP 98–98.8; O2SAT 92–100
[2024-09-06 10:21] LABS: ABG BASE EXCESS 7.1 mmol/L (-2.0-3.0); ABG OXYGEN SATURATION 88.9 % (94.0-98.0); ABG PCO2 39.3 mmHg (35.0-48.0); ABG PO2 58.5 mmHg (83.0-108.0); ABG TOTAL HEMOGLOBIN 8.5 G/dL (13.5-17.5); COHb 0.4 % (0.5-1.5); MetHb 0.3 % (0.0-1.5); O2Hb 88.3 % (94.0-97.0); SITE, ABG LEFT RADIAL
[2024-09-06] MEDS ORDERED: BUMETANIDE INJ 4 MG in IV D5W 24 ML IV ONE (11:00)
[2024-09-06] MEDS: ALBUMIN 25% 25 GM in PREMIX 1 EA IV SCH (11:58)
[2024-09-06 12:03] LABS: CALCIUM, SERUM 8.1 mg/dL (8.5-10.1); CREATININE 0.8 mg/dL (0.6-1.3); POTASSIUM 3.2 mmol/L (3.5-5.1)
[2024-09-06] MEDS: BUMETANIDE INJ 4 MG in IV NS 0.9% 24 ML IV ONE (13:01)
[2024-09-06] MEDS: POTASSIUM CHLORIDE 20 MEQ TAB.PRT.SR PO SCH (15:21)
[2024-09-07] VITALS (12 sets, daily range): BP systolic 133–159; BP diastolic 81–94; TEMP 97.8–98.5; O2SAT 92–100
[2024-09-07 07:36] LABS: CALCIUM, SERUM 8.7 mg/dL (8.5-10.1); CREATININE 0.8 mg/dL (0.6-1.3); POTASSIUM 3.1 mmol/L (3.5-5.1)
[2024-09-07] MEDS: POTASSIUM CHLORIDE 20 MEQ TAB.PRT.SR PO SCH (09:23)
[2024-09-07] MEDS ORDERED: POTASSIUM CHLORIDE 20 MEQ TAB.PRT.SR PO ONE (10:30)
[2024-09-08] VITALS (7 sets, daily range): BP systolic 142–156; BP diastolic 65–68; TEMP 97.9–98.4; O2SAT 95–100
[2024-09-08 07:15] LABS: CALCIUM, SERUM 8.8 mg/dL (8.5-10.1); CREATININE 0.7 mg/dL (0.6-1.3); POTASSIUM 3.5 mmol/L (3.5-5.1)
[2024-09-08] MEDS: POTASSIUM CHLORIDE 20 MEQ TAB.PRT.SR PO SCH (09:52)
[2024-09-08] MEDS: BUMETANIDE INJ 8 MG in IV NS 0.9% 48 ML IV ONE (09:52)
== END 2024-09-08 15:30 | DRG 981 ==
LOC: ER 22:27 → TELE1 08-30 00:45 → TELE-TD 08-30 02:13 → TELE1 08-31 09:40 → MEDSG1 09-03 16:27
PROVIDERS: ADMIT Nurse Practitioner Acute Care; ATTEND Internal Medicine
PROC: 0KBV0ZZ Excision of Right Foot Muscle, Open Approach (ICD-10-PCS; principal; 2024-09-01)
PROC: 0KBV0ZZ Excision of Right Foot Muscle, Open Approach (ICD-10-PCS; 2024-09-08)
DX: J15.9 Unspecified bacterial pneumonia (principal); I50.33 Acute on chronic diastolic (congestive) heart failure; J96.01 Acute respiratory failure with hypoxia; L89.614 Pressure ulcer of right heel, stage 4; J44.0 Chronic obstructive pulmonary disease with (acute) lower respiratory infection; J90 Pleural effusion, not elsewhere classified; M86.671 Other chronic osteomyelitis, right ankle and foot; J44.1 Chronic obstructive pulmonary disease with (acute) exacerbation; I11.0 Hypertensive heart disease with heart failure; J43.2 Centrilobular emphysema; G62.9 Polyneuropathy, unspecified; K21.9 Gastro-esophageal reflux disease without esophagitis; Z87.891 Personal history of nicotine dependence; Z86.718 Personal history of other venous thrombosis and embolism; E88.09 Other disorders of plasma-protein metabolism, not elsewhere classified; M62.58 Muscle wasting and atrophy, not elsewhere classified, other site; D50.9 Iron deficiency anemia, unspecified; E87.6 Hypokalemia; R78.89 Finding of other specified substances, not normally found in blood
CPT/HCPCS: 36415; 71045-TC; 76604-TC; 80048-TC; 80053-TC; 80076-TC; 80202-TC; 82040-TC; 82728-TC; 82803-TC; 82962-TC; 83540-TC; 83605-TC; 83735-TC; 83880; 84100-TC; 84155; 84165; 84484-TC; 85025-TC; 85378-TC; 85610-TC; 85730-TC; 87040-TC; 87081-TC; 93307-TC; 93971-TC; 94761-TC; 94799-TC; 97110-TC; 97112-TC; 97116-TC; 97530-TC; A4216; A4223; A6253; A6403; G0378; J1650; J1940; J2470; J2543; J2919; J3370; J3371; J3475; J3490; J7050; J7060; P9047; Q9967